=== PATIENT | female | born 1960 | race Caucasian/White ===

== ENCOUNTER 2024-05-29 15:43 | Emergency (ER) | payer SELFPAY ==
[2024-05-29] VITALS (7 sets, daily range): BP systolic 149–174; BP diastolic 98–105; PULSE 49–65; RESP 16–20; TEMP 37.1; O2SAT 93–98; BMI 22.1
[2024-05-29] MEDS: ALBUTEROL 2.5 MG/3 ML NEB (ADULT) INH (16:25)
--- NOTE | 2024-05-29 16:53 | CM.SWNOTE ---
ED ACID CRANE OPERATOR Note ACID CRANE OPERATOR receives consult from RN due to patient's need for assistance in establishing care with PCP provider. RN reports patient's hx of pain management medications. Patient is 63 y/o female who presents to ED due to concern for medication refill and difficulty breathing. It is reported that patient just moved to the area, patient's son is active duty in [place]. Patient endorses she just set up Medicaid [facility] insurance. Patient states she believes she set up a PCP appt at with Dr. Pollock for July. ACID CRANE OPERATOR calls [facility] and it is reported that there is not scheduled appt with Dr. Pollock. It is reported that Dr. Sheth has openings and can see patient on Monday06/04/24 at 10:45AM check in. It is reported that Dr. Sheth may not be able to fill patient's pain medications, ACID CRANE OPERATOR states that patient may need pain management provider. ACID CRANE OPERATOR reviews this with patient, patient indicates agreement. Patient denies any further needs at this time. ED provider to evaluate patient. Patient likely to d/c to home upon medical clearance, patient to f/u with new PCP next week. KRYSTYNA Weiner
--- NOTE | 2024-05-29 17:22 | ED.RECABL ---
HPI - Recheck/Abnormal Lab/Rx General Chief Complaint: Recheck/Abnormal Lab/Rx Stated Complaint: needs medication refill, trouble breathing Time Seen by Provider: 05/29/24 17:08 Source: patient Mode of arrival: Ambulatory History of Present Illness HPI narrative: Patient past medical history of chronic low back pain, hypertension, COPD not requiring supplemental oxygen at baseline comes into the ED from home for med refill. States that she moved here approximately 3 weeks ago with family, has not established with a PCP therefore she states that she ran out of her rescue inhaler. She also states that she is having her symptoms controlled with her albuterol inhaler however she ran out 2 days ago. On exam she has not having any acute respiratory distress no expiratory wheezes speaking full sentences protecting airway. Patient was scheduled for a PCP appointment in the next week. Related Data Home Medications Medication Instructions Recorded Confirmed albuterol sulfate 90 mcg/actuation 2 puff inhalation QID PRN 05/29/24 05/29/24 aerosol inhaler Shortness Of Breath amlodipine 5 mg tablet 5 mg PO DAILY 05/29/24 05/29/24 carvedilol 6.25 mg tablet 6.25 mg PO BID 05/29/24 05/29/24 furosemide 20 mg tablet 20 mg PO DAILY 05/29/24 05/29/24 losartan 100 mg tablet 100 mg PO DAILY 05/29/24 05/29/24 oxycodone 20 mg tablet 20 mg PO TID PRN Pain, Moderate 05/29/24 05/29/24 Previous Rx's Medication Instructions Recorded albuterol sulfate 90 mcg/actuation 2 inh inhalation Q6H PRN shortness 05/29/24 aerosol inhaler of breath or wheezing #8.5 grams prednisone 20 mg tablet 20 mg PO BID 5 days #10 tabs 05/29/24 Allergies Allergy/AdvReac Type Severity Reaction Status Date / Time No Known Drug Allergies Allergy Verified 05/29/24 15:47 Review of Systems Review of Systems Narrative: General: Medication refill HEENT: Denies headache, eye drainage, eye irritation, head trauma, sore throat, voice change Cardiovascular: Denies any chest pain, palpitations, shortness of breath, tachycardia Respiratory: Denies any shortness of breath, cough, wheeze, stridor GI/: Denies any abdominal pain, nausea, vomiting, diarrhea, bright red blood per rectum, melanotic stools, urinary frequency, urinary retention, dysuria, hematuria MSK: Denies any joint pain, muscle pains, swelling Skin: Denies any rashes, lesions, discoloration Neuro: Denies any headache, lightheadedness, dizziness, fainting, weakness Psych: Denies SI/HI Patient History Social History Smoking Status: Current every day smoker Smoking Status: Current every day smoker tobacco type: cigarettes Substance Use Type: marijuana Exam Narrative Exam Narrative: General: Cooperative, comfortable, well-developed, not in acute distress HEENT: Normocephalic, atraumatic, PERRLA, normal sclera, eyelids normal, Neck: Active full range of motion, atraumatic Chest: Normal to inspection, negative crepitus, no overlying erythema ecchymosis Respiratory: Normal respiratory effort, not in acute respiratory distress, clear to auscultation bilaterally negative cough, wheeze, tachypnea, rhonchi, rales Cardiology: Regular rate rhythm negative gallop, murmur, rubs GI/: Normal to inspection, soft, nonrigid, no tenderness to palpation, exam deferred MSK: Full range of active range of motion of all 4 extremities, atraumatic Skin: No rashes lesions noted Neuro: Alert awake oriented x3, moves all 4 extremities spontaneously, cranial nerves intact, able to answer all questions appropriately follows commands appropriately Psych: Cooperative, negative suicidal or homicidal ideations Initial Vital Signs Initial Vital Signs: Vital Signs Temperature 98.7 F 05/29/24 15:47 Pulse Rate 57 L 05/29/24 15:47 Respiratory Rate 20 05/29/24 15:47 Blood Pressure 163/98 H 05/29/24 15:47 Pulse Oximetry 97 05/29/24 15:47 Oxygen Delivery Method Room Air 05/29/24 15:47 Course Orders Ordered: ED Orders 05/29/24 16:14 RT Consult Eval and Treat NOW 05/29/24 16:35 Consult to TECHNICAL SERVICE SPECIALIST - [employer] Stat Discontinued Medications Albuterol (Albuterol 2.5 Mg/3 Ml Neb (Adult)) 2.5 mg INH NOW ONE Stop: 05/29/24 16:23 Last Admin: 05/29/24 16:25 Dose: 2.5 mg Documented By: SAT Prednisone (Prednisone 20 Mg Tablet) 20 mg PO NOW ONE Stop: 05/29/24 17:26 Vital Signs Vital signs: Vital Signs - 8 hr 05/29/24 15:47 05/29/24 16:17 05/29/24 16:17 Temperature 98.7 F Pulse Rate 57 L 62 Respiratory Rate 20 Blood Pressure 163/98 H 174/105 H Pulse Oximetry 97 95 Oxygen Delivery Method Room Air 05/29/24 16:26 Temperature Pulse Rate 49 L Respiratory Rate 16 Blood Pressure Pulse Oximetry 98 Oxygen Delivery Method Room Air MDM - Recheck/Abnormal Lab/Rx Differential Diagnosis Differential diagnosis: Likely encounter for medication refill MDM Narrative Medical decision making narrative: Patient is a 63-year-old female with past medical history of COPD comes into the emergency department for medication refill, just moved here approximately 3 weeks ago has not established with a primary care ran out of her metered-dose inhaler 2 days ago. At evaluation patient without any expiratory wheezes speaking full sentences protecting airway, patient will be started on steroids and discharged home with albuterol inhaler for COPD exacerbation. Patient is scheduled for follow up with PCP in about 1 week. Patient verbalized strict return precautions safe for discharge home with outpatient follow-up Discharge Plan Departure Patient Disposition: Home Clinical Impression: Encounter for medication refill Prescriptions: New albuterol sulfate 90 mcg/actuation HFA aerosol inhaler 2 inh inhalation Q6H PRN (Reason: shortness of breath or wheezing) Qty: 8.5 2RF prednisone 20 mg tablet 20 mg PO BID 5 Days Qty: 10 0RF No Action carvedilol 6.25 mg Tablet 6.25 mg PO BID Rx Instructions: must administer with a meal/food amlodipine 5 mg Tablet 5 mg PO DAILY furosemide 20 mg Tablet 20 mg PO DAILY albuterol sulfate 90 mcg/actuation Hfa Aerosol Inhaler 2 puff INHALATION QID PRN (Reason: Shortness Of Breath) losartan 100 mg Tablet 100 mg PO DAILY oxycodone 20 mg Tablet 20 mg PO TID PRN (Reason: Pain, Moderate) Stand Alone Forms: Patient Portal/API
[2024-05-29] MEDS: predniSONE 20 MG TABLET PO (17:29)
== END 2024-05-29 17:33 | disposition home or self-care (01) ==
PROVIDERS: Emergency Provider Student in an Organized Health Care Education/Training Program
DX: Z76.0 Encounter for issue of repeat prescription (principal)
CPT/HCPCS: 94640; 99283; J7613

== ENCOUNTER 2025-09-20 10:32 | Emergency (ER) | payer BC, OTHER, SELFPAY ==
[2025-09-20 10:55] VITALS: BP 143/95; PULSE 69; RESP 17; TEMP 36.7; O2SAT 92; BMI 21.7
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
== END 2025-09-20 11:06 | disposition home or self-care (01) ==
PROVIDERS: Emergency Provider Emergency Medicine
DX: S43.401A Unspecified sprain of right shoulder joint, initial encounter (principal); X50.0XXA Overexertion from strenuous movement or load, initial encounter
CPT/HCPCS: 99281